=== PATIENT | male | born 1985 | race Hispanic/Latino ===

== ENCOUNTER 2020-10-07 09:56 | Emergency (ER) | payer SELFPAY ==
[2020-10-07] VITALS (34 sets, daily range): BP systolic 114–131; BP diastolic 69–86; PULSE 48–66; RESP 10–22; TEMP 36.8; O2SAT 96–100
--- NOTE | ~2020-10-07 | CT_ITS ---
EXAMINATION: CT brain wo con INDICATION: Left-sided weakness, dizziness COMPARISON: None TECHNIQUE: Standard unenhanced head CT. The dose-length product (DLP) was 605.33 mGy-cm. The mA was a djusted according to patient size. Iterative reconstruction technique was employed. FINDINGS: There is no intracranial hemorrhage, acute infarction, or abnormal mass lesion. The ventric les are normal. There is no abnormal mass effect or midline shift. The schuler-white matter differentiat ion is normal. The basal cisterns are patent. The orbits are normal. The paranasal sinuses, mastoids and calvarium are normal. IMPRESSION: 1. No acute intracranial abnormality. Reviewed, dictated and finalized at location A.
--- NOTE | ~2020-10-07 | XR_ITS ---
EXAMINATION: XR chest 2V DATE: 10/07/2020 10:39 INDICATION: Worsening left-sided chest pain TECHNIQUE: PA and lateral views of the chest are obtained. COMPARISON: None available FINDINGS: There are minimal opacities of the lung bases. There is no pleural effusion or pneumothorax . The cardiomediastinal silhouette is normal. The visualized bones and soft tissues are unremarkable. IMPRESSION: 1. Minimal bibasilar airspace opacity, consistent with atelectasis versus pneumonia. Reviewed, dictated and finalized at location A. IMPRESSION: 1. Minimal bibasilar airspace opacity, consistent with atelectasis versus pneum onia.
--- NOTE | 2020-10-07 10:05 | ECG_ITS ---
Measurements Intervals [place] Rate: 64 P: 54 NH: 169 QRS: 73 QRSD: 118 T: 48 QT: 385 QTc: 399 Interpretive Statements SINUS RHYTHM MINIMAL Q WAVES- INFERIOR LEADS ST ELEVATION IN DIFFUSE LEADS- CONSIDER PERICARDITIS, INJURY OR EARLY REPOLARIZATION ABNORMALITY BASELINE ARTIFACT- II, III, AVR, AVF, V3-V6 ABNORMAL ECG Electronically Signed On 10-07-2020 10:47:16 CDT by Pan Gonzalez D.O.
[2020-10-07 10:23] LABS: Basophils Percent Auto 0.8 % (0.2-1.2); Eosinophils Absolute Auto 0.1 K/mm3 (0-0.3); Eosinophils Percent Auto 1.8 % (0-4.4); Hematocrit 44.3 % (42.0-52.0); Hemoglobin 14.9 g/dL (14.0-18.0); Lymphocytes Absolute Auto 1.77 K/mm3 (0.9-3.2); Lymphocytes Percent Auto 36.1 % (18.3-44.2); Mean Corpuscular HGB Conc 33.6 g/dl (32-36); Mean Corpuscular Hemoglobin 29.8 pg (26-34); Mean Corpuscular Volume 88.6 fl (80-100); Mean Platelet Volume 11.8 fl (7.4-10.4); Monocytes Absolute Auto 0.3 K/mm3 (0.1-0.6); Monocytes Percent Auto 6.7 % (2.6-8.5); Neutrophils Absolute Auto 2.7 K/mm3 (1.3-6.7); Neutrophils Percent Auto 54.6 % (45.5-73.1); Platelet Count Result 177 k/mm3 (150-375); Red Cell Distribution Width 12.7 % (11.5-14.5); White Blood Count 4.9 K/mm3 (4.5-10.0)
--- NOTE | 2020-10-07 10:25 | ED.CHESTPAIN ---
HPI - Chest Pain General Chief Complaint: Chest Pain Stated Complaint: CP/OLSEN Time Seen by Provider: 10/07/20 10:15 Source: patient Mode of arrival: ambulatory Limitations: no limitations History of Present Illness HPI narrative: Patient is a 35-year-old male complaining of chest pain, left chest wall, sharp, moderate pain, nonradiating, intermittent that started approximately 2 weeks ago. Patient also states that he has been having left-sided weakness and numbness for the past 2 weeks. Patient walked with a steady gait. Patient denies any speech or visual disturbance. Patient denies any shortness of breath abdominal pain, nausea, vomiting, diaphoresis, fever or chills Related Data Allergies Allergy/AdvReac Type Severity Reaction Status Date / Time No Known Allergies Allergy Verified 10/07/20 10:47 Review of Systems Review of Systems: All systems reviewed & are unremarkable except as noted in HPI and below Constitutional: Constitutional: Denies body ache(s), Denies chills, Denies excessive sweating, Denies fatigue, Denies fever(s), Denies headache(s), Denies lethargy, Denies malaise, Denies weakness and Denies weight loss Eyes: Eyes: Denies blurry vision, Denies change in vision and Denies loss of vision ENT: Denies dizziness, Denies ear discharge, Denies headache(s), Denies lip swelling, Denies epistaxis, Denies nasal congestion, Denies neck pain, Denies throat swelling and Denies tongue swelling Cardiovascular: Cardiovascular: Denies chest pain, Denies chest pain at rest, Denies chest pain with activity, Denies diaphoresis, Denies rapid heart rate, Denies edema, Denies irregular heart rhythm, Denies lightheadedness, Denies palpitations, Denies dyspnea and Denies dyspnea on exertion Respiratory: Respiratory: Denies chest congestion, Denies cough, Denies hemoptysis, Denies dyspnea and Denies dyspnea on exertion Gastrointestinal: Gastrointestinal: Denies abdominal pain, Denies melena, Denies hematochezia, Denies diarrhea, Denies nausea, Denies vomiting and Denies hematemesis Musculoskeletal: Musculoskeletal: Denies abnormal gait, Denies deformity, Denies joint swelling, Denies limited range of motion, Denies neck pain and Denies numbness Neurologic: Denies Abnormal speech present, Denies abnormal gait, Denies confusion, Denies dizziness, Denies headache(s), Denies focal weakness, Denies loss of vision, Denies numbness, Denies Other visual disturbances, Denies Sensory deficit (Neuro) and Denies weakness Psychiatric: Psychiatric: Denies confusion, Denies depression, Denies auditory hallucinations, Denies homicidal ideation and Denies suicidal ideation Endocrine: Endocrine: Denies cold intolerance, Denies excessive sweating, Denies fatigue, Denies heat intolerance and Denies palpitations Hematologic/Lymphatic: Hematologic/Lymphatic: Denies easy bleeding and Denies easy bruising Allergic/Immunologic: Allergic/Immunologic: Denies lip swelling, Denies throat swelling and Denies tongue swelling PMFSH Comments Past medical history: None Family history: Negative for heart attack or heart disease Social history: Ex-smoker, no drug use, rare EtOH use Exam Const: General: cooperative, healthy appearing, comfortable, no acute distress, well developed, alert and awake; No confusion Orientation/consciousness: oriented to person, oriented to place, oriented to time, patient oriented x3 and No confusion Limitations: no limitations HENMT: Head: normal to inspection, normocephalic and atraumatic Ears: hearing grossly normal bilaterally, TM normal on the right and TM normal on the left General nose exam: Normal external nose present, Normal nares present and No nasal discharge present Face and sinus: normal facial exam Mouth: Yes Normal oral and palatal mucosa present, Yes lip normal, Yes tongue normal and Yes oropharynx normal Throat: posterior oropharynx normal, tonsils normal and uvula midline Eyes: General: appearance normal, both eyes and a
[2020-10-07 10:41] LABS: Prothrombin Time 12.7 Seconds (11.1-14.7)
[2020-10-07 10:42] LABS: Partial Thromboplastin Time 32.3 SECONDS (22.3-36.8)
[2020-10-07 10:45] LABS: Anion Gap 15 mmol/L (8-16); Blood Urea Nitrogen 13 mg/dL (9-20); Calcium 9.5 mg/dL (8.4-10.2); Carbon Dioxide 22 mmol/L (22-30); Chloride 104 mmol/L (98-107); Estimated CRCL calculation 126 ml/min; Estimated Glomerular Filt Rate > 60; Glucose 85 mg/dL (65-110); Potassium 3.8 mmol/L (3.4-5.0); Sodium 141 mmol/L (137-145)
[2020-10-07 10:56] LABS: Troponin I < 0.012 ng/mL (0.000-0.034)
[2020-10-07] MEDS: ASPIRIN 81 MG CHEWABLE TABLET 324 MG PO (12:10)
[2020-10-07 14:47] LABS: Troponin I < 0.012 ng/mL (0.000-0.034)
== END 2020-10-07 15:45 | disposition home or self-care (01) ==
PROVIDERS: Emergency Provider Emergency Medicine
DX: R07.89 Other chest pain (principal); R20.2 Paresthesia of skin; R94.31 Abnormal electrocardiogram [ECG] [EKG]
CPT/HCPCS: 36415; 70450; 71046; 80048; 84484; 85025; 85610; 85730; 93005; 99284; A9270

== ENCOUNTER 2021-07-10 06:30 | Emergency (ER) | payer SELFPAY ==
--- NOTE | ~2021-07-10 | CT_ITS ---
EXAMINATION: CT abdomen pelvis wo con DATE: 07/10/2021 07:59 INDICATION: Epigastric pain TECHNIQUE: Computed tomography (CT) of the abdomen and pelvis was performed without intravenous contr ast. The dose-length product (DLP) was 581.00 mGy-cm. Automated exposure control and iterative recons truction technique were employed. COMPARISON: None FINDINGS: There are minimal dependent airspace opacities of the lower lobes. Small clustered tree-in- bud nodules are seen in the left upper lobe. The heart size is normal. The liver is diffusely low in attenuation when compared with the spleen, consistent with hepatic steatosis. The spleen, pancreas, g allbladder, and adrenal glands are normal. The kidneys are unremarkable. No pathologically enlarged a bdominal or pelvic lymph nodes are identified. There are multiple fluid-filled loops of small bowel a t the upper limits of normal in caliber. There is no free intraperitoneal gas. There is mild lumbar s pondylosis. IMPRESSION: 1. Multiple fluid-filled loops of small bowel at the upper limits of normal in caliber, possibly refl ecting enteritis, less likely ileus or early obstruction. Reviewed, dictated and finalized at location A. IMPRESSION: 1. Multiple fluid-filled loops of small bowel at the upper limits of normal in caliber, possibly reflecting enteritis, less likely ileus or early obstruction.
[2021-07-10 06:33] VITALS: BP 122/69; PULSE 74; RESP 16; TEMP 36.6; O2SAT 99
[2021-07-10 06:56] LABS: Basophils Percent Auto 0.5 % (0.2-1.2); Eosinophils Absolute Auto 0.3 K/mm3 (0-0.3); Eosinophils Percent Auto 3.9 % (0-4.4); Hematocrit 47.3 % (42.0-52.0); Hemoglobin 15.7 g/dL (14.0-18.0); Immature Granulocyte Absolute 0.02 K/mm3 (0.00-0.031); Immature Granulocyte Percent A 0.2 % (0-0.5); Lymphocytes Absolute Auto 1.08 K/mm3 (0.9-3.2); Lymphocytes Percent Auto 12.3 % (18.3-44.2); Mean Corpuscular HGB Conc 33.2 g/dl (32-36); Mean Corpuscular Hemoglobin 29.7 pg (26-34); Mean Corpuscular Volume 89.6 fl (80-100); Mean Platelet Volume 11.7 fl (7.4-10.4); Monocytes Absolute Auto 0.3 K/mm3 (0.1-0.6); Monocytes Percent Auto 3.5 % (2.6-8.5); Neutrophils Percent Auto 79.6 % (45.5-73.1); Platelet Count Result 184 k/mm3 (150-375); Red Blood Count 5.28 M/mm3 (4.6-6.20); Red Cell Distribution Width 12.6 % (11.5-14.5); White Blood Count 8.8 K/mm3 (4.5-10.0)
[2021-07-10 07:02] LABS: Appearance Urine Clear (Clear); Bilirubin Urine Negative (Negative); Blood Urine Negative (Negative); Color Urine Yellow (Yellow); Glucose Urine UA Negative (Negative); Ketones Urine Negative (Negative); Leukocyte Esterase Ur Negative LEU/UL (Negative); Nitrate Urine Negative (Negative); Protein Urine Negative (Negative); Specific Grav Ur 1.025 (1.001-1.035); Urobilinogen Urine 0.2 mg/dL (<2.0)
[2021-07-10 07:08] LABS: Alanine Aminotransferase 69 U/L (6-50); Albumin Level 4.9 g/dL (3.5-5.1); Alkaline Phosphatase 118 U/L (38-126); Anion Gap 9 mmol/L (8-16); Aspartate Amino Transferase 48 U/L (17-59); Bilirubin,Total 0.6 mg/dL (0.2-1.3); Blood Urea Nitrogen 18 mg/dL (9-20); Calcium 8.8 mg/dL (8.4-10.2); Carbon Dioxide 24 mmol/L (22-30); Chloride 108 mmol/L (98-107); Estimated Glomerular Filt Rate > 60; Glucose 104 mg/dL (65-110); Lipase 59 U/L (23-300); Sodium 141 mmol/L (137-145)
[2021-07-10 07:08] LABS: Add Urine Microscopic? NO
--- NOTE | 2021-07-10 07:22 | ED.ABDPAIN ---
HPI - Abdominal Pain General Chief Complaint: Abdominal Pain Stated Complaint: ABD Pain Time Seen by Provider: 07/10/21 06:52 History of Present Illness HPI narrative: 35-year-old male who denies any significant past medical history presenting to the emergency department for evaluation of nausea vomiting and diarrhea. Patient states he began having the nausea vomiting diarrhea approximately 3 days ago. Patient does describe multiple episodes of emesis. Patient has midepigastric pain that does not radiate. Patient states he has had diarrhea but also describes having some dark stools previously. Patient states that he did have some small streaks of blood in his emesis. Patient denies taking aspirin or ibuprofen. Patient denies alcohol or tobacco. Related Data Allergies Allergy/AdvReac Type Severity Reaction Status Date / Time No Known Allergies Allergy Verified 07/10/21 06:35 Review of Systems Review of Systems: CONSTITUTIONAL: Denies fever, chills, or sweats. EYES: Denies visual changes, redness, or discharge. ENT: Denies rhinorrhea, congestion, sore throat, or otalgia. CARDIOVASCULAR: Denies chest pain, palpitations, or edema. RESPIRATORY: Denies cough or dyspnea. GASTROINTESTINAL: See HPI GENITOURINARY: Denies dysuria or hematuria. SKIN: Denies rash or itching. MUSCULOSKELETAL: Denies back pain, joint pain, or myalgia. NEUROLOGIC: Denies headache, numbness, or weakness. Exam Narrative: APPEARANCE: Well appearing, no pain, no distress, well-nourished. HEAD: normocephalic, atraumatic. EYES: PERRLA/EOMI, conjunctivae clear. NOSE: Normal no drainage NECK: Supple. No adenopathy, no masses. RESPIRATORY: Airway patent, respirations nonlabored. Clear to auscultation bilaterally, no rales, rhonchi, wheezing. CARDIOVASCULAR: Regular rate and rhythm without murmurs rubs or gallops. ABDOMINAL: Soft, nondistended, normal bowel sounds, mild epigastric tenderness to palpation. Patient was Hemoccult negative on the [place] MUSCULOSKELETAL: Moves all extremities. Strength/ROM intact, No edema, No calf tenderness. NEURO: Alert. Cranial nerves II through XII intact. Grossly intact SKIN: Warm, dry. Normal Color Course Course Emergency Course: Translation iPad was used. Patient was Hemoccult negative on the [place]. Patient felt improved with treatment. Patient states his nausea is resolved. Patient states his epigastric pain is resolved. CT scan showed some evidence of enteritis. Patient was updated on the treatment plan and on reasons to return to the emergency department. All questions and concerns were addressed. Reevaluation(s) Reevaluation #1: Patient was updated on the results of his labs and imaging. Patient does feel improved with treatment. Patient has had no further emesis while in the ED. CT scan showed evidence of possible enteritis. No obstruction. Patient will be provided Zofran for home. All questions and concerns were addressed. Time: 09:03 Vital Signs Vital signs: Vital Signs Temperature 97.8 F 07/10/21 06:33 Pulse Rate 74 07/10/21 06:33 Respiratory Rate 16 07/10/21 06:33 Blood Pressure 122/69 07/10/21 06:33 Pulse Oximetry 99 07/10/21 06:33 Oxygen Delivery Room Air 07/10/21 06:33 Temperature 97.8 F 07/10/21 06:33 Pulse Rate 74 07/10/21 06:33 Respiratory Rate 16 07/10/21 06:33 Blood Pressure 122/69 07/10/21 06:33 Pulse Oximetry 99 07/10/21 06:33 Oxygen Delivery Room Air 07/10/21 06:33 MDM - Abdominal Pain Lab Data Attestation: I reviewed the patient's lab results. Result diagrams: 07/10/21 06:51 07/10/21 06:51 Labs: Lab Results 07/10/21 07/10/21 07/10/21 Range/Units 06:51 06:51 06:54 WBC 8.8 (4.5-10.0) K/mm3 RBC 5.28 (4.6-6.20) M/mm3 Hgb 15.7 (14.0-18.0) g/dL Hct 47.3 (42.0-52.0) % MCV 89.6 (80-100) fl MCH 29.7 (26-34) pg MCHC 33.2 (32-36) g/dl RDW 12.6 (11.5-14.5) % Plt Coun
[2021-07-10] MEDS: ONDANSETRON INJ 4 MG/2 ML VIAL IV PUSH (07:34)
[2021-07-10] MEDS: SODIUM CHLORIDE 0.9% IV 1,000 ML 999 ML IV CONT (07:34)
[2021-07-10] MEDS: HYDROmorphone HCL INJ (*CRX) 1 MG/ML SYR IV PUSH (07:36)
[2021-07-10] MEDS: PANTOPRAZOLE SODIUM IV 40 MG VIAL IV PUSH (07:39)
== END 2021-07-10 09:23 | disposition home or self-care (01) ==
PROVIDERS: General Practice; Emergency Provider Emergency Medicine
DX: R11.2 Nausea with vomiting, unspecified (principal); R10.13 Epigastric pain
CPT/HCPCS: 36415; 74176; 80053; 81003; 83690; 85025; 96361; 96374; 96375; 99284; C9113; J1170; J2405; J7030

== ENCOUNTER 2024-05-07 17:28 | Emergency (ER) | payer SELFPAY ==
--- NOTE | ~2024-05-07 | CT_ITS ---
History: Left arm paresthesias PROCEDURE: CT cervical spine without intravenous contrast. COMPARISON: None TECHNIQUE: Multiple contiguous axial images of the cervical spine were performed without the administration of i ntravenous contrast. DLP: 416 mGy-cm FINDINGS: Preservation of the normal curvature of the cervical spine is identified. No significant degenerative disease is identified. No acute fractures are present. The bilateral lung apices are unremarkable. No soft tissue abnormality is present. The airway is patent Impression: No significant degenerative disease is noted. No acute fracture. Reviewed, dictated and finalized at location A. Impression: No significant degenerative disease is noted. No acute fracture.
--- NOTE | ~2024-05-07 | XR_ITS ---
CHEST RADIOGRAPH, PA AND LATERAL CLINICAL HISTORY: chest pain, numbness in fingers . COMPARISON: 10/07/2020 TECHNIQUE: PA and lateral views of the chest. FINDINGS The cardiomediastinal silhouette is unremarkable. The lungs are clear. Visualized osseous structures and soft tissues are unremarkable. IMPRESSION: No focal infiltrate or effusion. Reviewed, dictated and finalized at location A.
--- NOTE | ~2024-05-07 | CT_ITS ---
History: Left upper extremity paresthesias PROCEDURE: CT head without contrast. COMPARISON: None TECHNIQUE: Axial imaging of the head performed from the skull base to the vertex without IV contrast. Sagittal a nd coronal reformations obtained. DLP: 605 mGy-cm FINDINGS: The ventricles are normal in size, shape and position. There is no mass, mass effect or midline shift. There is no abnormal extra-axial fluid collection or intracranial hemorrhage. Visualized paranasal sinuses are clear. The mastoid air cells are well aerated. No acute displaced fractures within the overlying cranium. Impression: No acute intracranial hemorrhage or suspicious mass effect. Reviewed, dictated and finalized at location A. Impression: No acute intracranial hemorrhage or suspicious mass effect.
[2024-05-07 17:35] VITALS: BP 142/93; PULSE 80; RESP 18; TEMP 36.1; O2SAT 100
--- NOTE | 2024-05-07 18:51 | ECG_ITS ---
Test Date: 2024-05-07 18:57:12 Measurements Intervals [place] Rate: 65 P: 44 NE: 175 QRS: 68 QRSD: 121 T: 59 QT: 390 QTc: 408 Interpretive Statements SINUS RHYTHM INTRAVENTRICULAR CONDUCTION DELAY ST ELEVATION IN DIFFUSE LEADS- PROBABLY EARLY REPOLARIZATION BASELINE WANDER- V2 BORDERLINE ECG No previous ECG available for comparison Electronically Signed On 05-07-2024 20:24:53 CDT by Pan Gonzalez D.O.
--- NOTE | 2024-05-07 18:57 | ED.UPPEXIN ---
HPI - Extremity Injury (Upper) General Chief Complaint: Extremity Injury, Upper Stated Complaint: Upper extremity pain Time Seen by Provider: 05/07/24 18:04 Source: patient Mode of arrival: ambulatory Limitations: language barrier (using stratus transformation analyst) History of Present Illness HPI narrative: This is a 38 year old male that presents to the ER for left arm paresthesias. Ongoing over the last couple of days. Reports since last night he has had numbness of his left 3rd finger. Reports some left shoulder/chest pain last night as well. Denies any current chest pain, shortness of breath, other focal numbness, weakness. Related Data Allergies Allergy/AdvReac Type Severity Reaction Status Date / Time No Known Allergies Allergy Verified 05/07/24 17:47 Review of Systems Review of Systems: CONSTITUTIONAL: Denies fever EYES: Denies visual changes CARDIOVASCULAR: Reports chest pain RESPIRATORY: Denies dyspnea. MUSCULOSKELETAL: Reports joint pain, and myalgia. NEUROLOGIC: Reports numbness. Denies weakness. All systems reviewed & are unremarkable except as noted in HPI and below PMFSH Past Medical History Medical History (Updated 05/07/24 @ 20:34 by Kelly Cummins PA-C) No active medical problems Social History Social History (Updated 05/07/24 @ 19:07 by Kelly Cummins PA-C) Smoking status: Never smoker Exam Narrative: GENERAL: Well-appearing, well-nourished, and in no acute distress. HEAD: Normocephalic, atraumatic. EYES: PERRLA and EOMI. ENT: Nares clear, no rhinorrhea or epistaxis. Mucous membranes moist. Oropharynx without tonsillar hypertrophy exudate or other lesions. Bilateral TMs pearly schuler non-bulging NECK: Supple. No adenopathy or masses. CHEST: Clear to auscultation. No respiratory distress. No wheezes rales or rhonchi HEART: Regular rate and rhythm. No murmur heard. Normal peripheral pulses. EXTREMITIES: Normal range of motion. No edema or erythema. Strength equal in bilateral upper lower extremities (5/5) SKIN: Warm, dry, no rash. NEURO: No focal deficits. Alert and oriented x3. Cranial nerves 2-12 grossly intact PSYCH: Normal mood and affect Course Course Emergency Course: Patient updated on his workup and agrees with plan of care Vital Signs Vital signs: Vital Signs Temperature 97.0 F L 05/07/24 17:35 Pulse Rate 80 05/07/24 17:35 Respiratory Rate 18 05/07/24 17:35 Blood Pressure 142/93 H 05/07/24 17:35 Pulse Oximetry 100 05/07/24 17:35 Oxygen Delivery Room Air 05/07/24 17:35 Temperature 97.0 F L 05/07/24 17:35 Pulse Rate 80 05/07/24 17:35 Respiratory Rate 18 05/07/24 17:35 Blood Pressure 142/93 H 05/07/24 17:35 Pulse Oximetry 100 05/07/24 17:35 Oxygen Delivery Room Air 05/07/24 17:35 MDM - Extremity Injury (Upper) MDM Narrative Medical decision making narrative: Patient presents to the ER for left shoulder pain, arm paresthesias ongoing over the last couple of days. No focal deficits noted on exam. Cbc metabolic panel without concerning findings. EKG is unchanged from previous, baseline troponin is negative. Chest x-ray without acute cardiopulmonary abnormality. CT brain and cervical spine without acute findings. Patient updated on his workup and agrees with plan of care. Patient instructed to have close follow up with his PCP. Will be given information for follow up with neurology and orthopedics. He was given warnings to return to the ER Differential Diagnosis Differential diagnosis: Likely other (Shoulder impingement, rotator cuff tendinopathy, cervical radiculopathy) Lab Data Attestation: I reviewed the patient's lab results. 05/07/24 19:15 05/07/24 19:15 Labs: Lab Results 05/07/24 Range/Units 19:15 WBC 5.8 (4.5-10.0) K/mm3 RBC 5.05 (4.6-6.20) M/mm3 Hgb 14.9 (14.0-18.0) g/dL Hct 43.0 (42.0-52.0) % MCV 85.1 (80-100) fl MCH 29.5 (26-34) pg MCHC 34.7 (32-36) g/dl RDW 12.7 (11.5-14.5) % Plt Count 205 (150-375) k/mm3 MPV 11.6 H (7.4-10.4) fl Immature Gran % (Auto) 0.3 (0-0.5) % Neut % (Auto) 48.5 (45.5-73.1) % Lymph % (Auto) 36.5 (18.3-44.2) % [place] % (Auto) 8.4 (2.6-8.5) % Eos % (Auto) 5.3 H (0-4.4) % Baso % (Auto) 1.0 (0.2-1.2) % Lymph # (Auto) 2.12 (0.9-3.2) K/mm3 [place] # (Auto) 0.5 (0.1-0.6) K/mm3 Eos # (Auto) 0.3 (0-0.3) K/mm3 Baso # (Auto) 0.1 (0.0-0.1) K/mm3 Abs Immat Gran (auto) 0.02 (0.00-0.031) K/mm3 Absolute Neuts (auto) 2.8 (1.3-6.7) K/mm3 Absolute Nucleated RBC 0.000 (0.0-0.012) K/mm3 Nucleated RBC % 0.0 (0.0-0.2) % PT 13.2 (11.1-14.7) Seconds INR 1.0 APTT 31.2 (22.3-36.8) Seconds Sodium 139 (137-145) mmol/L Potassium 3.9 (3.4-5.0) mmol/L Chloride 105 (98-107) mmol/L Carbon Dioxide 24 (22-30) mmol/L Anion Gap 10 (4-12) mmol/L BUN 21 H (9-20) mg/dL Creatinine 0.84 (0.7-1.3) mg/dL Estim Creat Clear Calc 106 ml/min Estimated GFR > 60 (59 - ) Glucose 117 H (65-110) mg/dL Calcium 9.3 (8.4-10.2) mg/dL Total Bilirubin 0.4 (0.2-1.3) mg/dL AST 33 (17-59) U/L ALT 52 H (6-50) U/L Alkaline Phosphatase 108 (38-126) U/L Troponin I < 0.012 (0.000-0.034) ng/mL Total Protein 8.0 (6.3-8.2) g/dL Albumin 4.6 (3.5-5.1) g/dL Imaging Data Radiologist's impression: ITS Impressions Chest X-Ray 05/07/24 19:24 IMPRESSION: No focal infiltrate or effusion. Head CT 05/07/24 19:58 Impression: No acute intracranial hemorrhage or suspicious mass effect. Cervical Spine CT 05/07/24 20:02 Impression: No significant degenerative disease is noted. No acute fracture. ECG Data EKG #1: ECG completion date: 05/07/24 EKG Interpretation: normal rate, sinus rhythm, ST elevation (with normally infected T waves), normal QT and no acute changes (from previous EKG 10/2020) Critical Care Time Critical Care Time Critical Care Time: No Discharge Plan Discharge Clinical Impression: Paresthesia, Acute pain of left shoulder Patient Disposition: Home, Self-Care Condition: Stable Instructions: Paresthesia (ED), Shoulder Pain (ED) Additional Instructions: Return to the emergency department if you experience fever, chest pain, shortness of breath, abdominal pain with nausea and vomiting, weakness, numbness, or any other symptoms that are concerning to you. Follow up with your primary care doctor and neurology Patient Language: Chinese Prescriptions: No Action ondansetron 4 mg tablet,disintegrating 4 mg PO Q6H Qty: 14 0RF Follow-up/Referrals: David Hobbs MD [Physician] - PHYSICIAN,[employer] [Primary Care Provider] - Christiano Wren MD [Physician] - Stand Alone Forms: Work/School Release IP
[2024-05-07 19:20] LABS: Basophils Absolute Auto 0.1 K/mm3 (0.0-0.1); Eosinophils Absolute Auto 0.3 K/mm3 (0-0.3); Eosinophils Percent Auto 5.3 % (0-4.4); Hemoglobin 14.9 g/dL (14.0-18.0); Immature Granulocyte Absolute 0.02 K/mm3 (0.00-0.031); Immature Granulocyte Percent A 0.3 % (0-0.5); Lymphocytes Absolute Auto 2.12 K/mm3 (0.9-3.2); Lymphocytes Percent Auto 36.5 % (18.3-44.2); Mean Corpuscular HGB Conc 34.7 g/dl (32-36); Mean Corpuscular Hemoglobin 29.5 pg (26-34); Mean Corpuscular Volume 85.1 fl (80-100); Mean Platelet Volume 11.6 fl (7.4-10.4); Monocytes Absolute Auto 0.5 K/mm3 (0.1-0.6); Monocytes Percent Auto 8.4 % (2.6-8.5); Neutrophils Absolute Auto 2.8 K/mm3 (1.3-6.7); Neutrophils Percent Auto 48.5 % (45.5-73.1); Platelet Count Result 205 k/mm3 (150-375); Red Blood Count 5.05 M/mm3 (4.6-6.20); Red Cell Distribution Width 12.7 % (11.5-14.5); White Blood Count 5.8 K/mm3 (4.5-10.0)
[2024-05-07 19:29] LABS: Alanine Aminotransferase 52 U/L (6-50); Albumin Level 4.6 g/dL (3.5-5.1); Alkaline Phosphatase 108 U/L (38-126); Anion Gap 10 mmol/L (4-12); Aspartate Amino Transferase 33 U/L (17-59); Bilirubin,Total 0.4 mg/dL (0.2-1.3); Blood Urea Nitrogen 21 mg/dL (9-20); Calcium 9.3 mg/dL (8.4-10.2); Carbon Dioxide 24 mmol/L (22-30); Chloride 105 mmol/L (98-107); Estimated CRCL calculation 106 ml/min; Estimated Glomerular Filt Rate > 60; Glucose 117 mg/dL (65-110); Potassium 3.9 mmol/L (3.4-5.0); Sodium 139 mmol/L (137-145)
[2024-05-07 19:31] LABS: Prothrombin Time 13.2 Seconds (11.1-14.7)
[2024-05-07 19:32] LABS: Partial Thromboplastin Time 31.2 Seconds (22.3-36.8)
[2024-05-07 19:42] LABS: Troponin I < 0.012 ng/mL (0.000-0.034)
[2024-05-07 21:09] VITALS: BP 138/89; PULSE 63; RESP 14; O2SAT 98
== END 2024-05-07 21:23 | disposition home or self-care (01) ==
PROVIDERS: Emergency Provider Physician Assistant
DX: R20.2 Paresthesia of skin (principal); M25.512 Pain in left shoulder
CPT/HCPCS: 36415; 70450; 71046; 72125; 80053; 84484; 85025; 85610; 85730; 93005; 99284